=== PATIENT | female | born 1965 | race Caucasian/White ===

== ENCOUNTER 2016-10-26 15:26 | Observation (INO) ==
--- NOTE | 2016-10-26 15:31 | Emergency Department Note ---
Disposition Clinical Impression: Atrial fibrillation with RVR, Abnormal EKG, Dyspnea, Hypokalemia, Lactic acidosis, Hyperglycemia Disposition: Admitted As Inpatient General Adult HPI - General Chief complaint: ED Shortness of Breath/Dyspnea Stated complaint: afib w/RVR Time Seen by Provider: 10/26/16 15:28 - History of Present Illness HPI Narrative: 51-year-old female reports emergency department complaining of feeling weak and dizzy. 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 She was going to do an EKG today on the patient, and after running up some steps felt like she might pass out. The patient complained of shortness of breath, a pulse ox was placed and then noted she had a fast heart rate. The patient felt like passing out but did not pass out. EKG was obtained which reportedly showed A. fib with RVR. She had no trouble moving her arms or legs independently no weakness or numbness the arms or legs no slurred speech or seizure-like activity. The patient denies any chest pain. She has no history of coronary disease her last cardiac catheterization was [address] Bhagat. The patient denies any major medical problems. She was feeling fine prior to the event. The patient has had no abdominal pain vomiting diarrhea vaginal discharge fever rash flank pain acute back pain headache neck stiffness convulsion or confusion. No urinary symptoms. No trouble walking talking hearing seeing or speaking. The patient came in by EMS for evaluation. She feels improved.. She has no history of PE DVT cancer or akshat arrhythmia per reports she has a baseline abnormal EKG with ST depressions per her direct history. - Related Data Home Medications Medication Instructions Recorded Confirmed Diphenoxylate/Atropine [Lomotil 1 tab PO QID PRN 10/26/16 10/26/16 2.5 mg/0.025 mg] Medroxyprogesterone Acetate 150 mg IM Q3M 10/26/16 10/26/16 [Depo-Provera] Omeprazole [PriLOSEC] 20 mg PO DAILY PRN 10/26/16 10/26/16 Allergies Allergy/AdvReac Type Severity Reaction Status Date / Time No Known Allergies Allergy Verified 10/26/16 15:41 All systems ED: reviewed and negative except as stated. Physical Exam - General Limitations: no limitations General appearance: alert, in no apparent distress - Head Head exam: atraumatic, normocephalic, normal inspection - Eye Eye exam: Present: normal appearance, PERRL, EOMI - ENT ENT exam: normal exam, normal oropharynx, mucous membranes moist, TM's normal bilaterally, normal external ear exam - Neck Neck exam: Present: normal inspection, full ROM, trachea midline. Absent: tenderness, meningismus - Chest Chest inspection: Present: normal inspection, symmetric chest wall rise. Absent : tenderness - Respiratory Respiratory exam: Present: normal lung sounds bilaterally. Absent: respiratory distress, accessory muscle use, prolonged expiratory phase - Cardiovascular Cardiovascular exam: Present: regular rate, tachycardia - Abdominal Exam Abdominal exam: Present: soft, Non-Tender. Absent: tenderness, distention, guarding, rebound, rigidity, normal bowel sounds - Extremities Exam Extremities exam: Present: normal inspection, full ROM, normal capillary refill. Absent: tenderness, pedal edema, joint swelling, calf tenderness - Expanded Lower Extremity Exam Lower leg exam: Absent: Homans' sign Neurovascular/Tendon exam: Present: normal capillary refill. Absent: motor deficit, sensory deficit, tendon deficit, extremity cold to touch, pallor - Back Exam Back exam: Present: normal inspection, full ROM. Absent: tenderness, CVA tenderness (R), CVA tenderness (L), vertebral tenderness - Neurological Exam Neurological exam: Present: alert, oriented X3, CN II-XII intact. Absent: motor sensory deficit - Psychiatric Psychiatric exam: Present: normal affect, normal mood - Skin Skin exam: Present: warm, dry, intact, normal color. Absent: rash, cyanosis, diaphoresis, erythema, pallor, mottled Course Vital Signs Temperature 98.7 F 10/26/16 15:27 Pulse Rate 106 10/26/16 15:27 Respiratory Rate 24 10/26/16 15:27 Blood Pressure 157/100 10/26/16 15:27 O2 Sat by Pulse Oximetry 98 10/26/16 15:27 Temperature 98.7 F 10/26/16 15:27 Pulse Rate 97 10/26/16 16:55 Respiratory Rate 14 10/26/16 16:55 Blood Pressure 146/100 10/26/16 16:55 O2 Sat by Pulse Oximetry 97 10/26/16 16:55 Oxygen Delivery Oxygen Delivery Room Air Medical Decision Making - MDM Narrative Medical decision making narrative: I reviewed the EKG with Dr. Zysek cardiology, we both feel the patient does not have changes consistent with STEMI. The patient is not complaining of chest pain. She did have some dyspnea on exertion with noted arrhythmia, her second EKG the one done in the ED showed sinus tachycardia with ST depressions. Aspirin was ordered as a precaution. The Cardiology staff did report to the emergency department and evaluated the patient and recommend admission. The patient is currently stable. General testing reveals an elevated lactate, however no elevated white count or immediate source of infection is noted. IV fluids given. The patient is currently stable. A blood culture was ordered. I discussed the case with the hospitalist on-call who has accepted the patient to their care. Magnesium and CRP are pending. Aspirin and Lopressor ordered. - Lab Data Lab results reviewed: Yes I reviewed the patient's lab results. Result diagrams: 10/26/16 15:47 10/26/16 15:47 Lab Results 10/26/16 10/26/16 10/26/16 Range/Units 15:33 15:47 15:47 WBC 5.4 (4.3-11.1) K/mcL RBC 4.98 H (3.82-4.97) M/mcL Hgb 15.5 H (11.5-15.4) g/dL Hct 46.4 H (35.3-44.9) % MCV 93.2 (83.0-100.0) fL MCH 31.1 (28.0-33.3) pg MCHC 33.4 (31.6-35.5) g/dL RDW 12.6 (11.5-14.5) % Plt Count 257 (140-400) K/mcL MPV 9.2 L (9.4-12.4) fL Immature Gran % 0.2 (0-4) % Seg Neutrophils % 63.6 % Lymphocytes % 25.3 % Monocytes % 8.1 % Eosinophils % 2.2 % Basophils % 0.6 % Neutrophils # 3.5 (1.6-8.9) K/mcL Lymphocytes # 1.4 (0.6-4.6) K/mcL Monocytes # 0.4 (0.0-1.3) K/mcL Eosinophils # 0.1 (0.0-0.6) K/mcL Basophils # 0.0 (0.0-0.2) K/mcL PT 11.4 (9.4-12.1) Seconds INR 1.1 APTT 28.0 (26.0-36.0) Seconds D-Dimer 418 (0-500) ng/mLFEU Sodium (136-145) mEq/L Potassium (3.5-4.5) mEq/L Chloride (98-109) mEq/L Carbon Dioxide (19-29) mEq/L BUN (7-20) mg/dL Creatinine (0.57-1.11) mg/dL Est GFR ( Amer) (> 60) Est GFR (Non-Af Amer) (> 60) BUN/Creatinine Ratio (6-26) Glucose (70-99) mg/dL Calculated Osmolality (280-300) Lactic Acid (0.5-2.2) mmol/L Calcium (8.6-10.8) mg/dL Total Bilirubin (0.2-1.2) mg/dL Direct Bilirubin (0.0-0.5) mg/dL Indirect Bilirubin (0.0-1.2) mg/dL AST (5-34) Units/L ALT (0-55) Units/L Alkaline Phosphatase (38-126) Units/L Troponin I (0-0.03) ng/mL B-Natriuretic Peptide (0-100) pg/mL Serum Total Protein (6.0-8.3) g/dL Albumin (3.5-5.0) g/dL Globulin (2.4-3.5) g/dL Albumin/Globulin Ratio (1.1-2.2) TSH (0.350-4.840) mcIU/mL Free T4 (0.70-1.48) ng/dl Urine Color Yellow (Yellow) Urine Clarity Clear (Clear) Urine pH 6.0 (5.0-8.0) pH Units Ur Specific [place] 1.011 (1.010-1.025) Urine Protein Negative (Neg-Trace) mg/dL Urine Glucose (UA) Normal (Normal) mg/dL Urine Ketones Negative (Negative) mg/dL Urine Blood Moderate H (Negative) Urine Nitrite Negative (Negative) Urine Bilirubin Negative (Negative) Urine Urobilinogen Normal (Normal) mg/dL Ur Leukocyte Esterase Negative (Negative) Urine Microscopic RBC 3-5 H (0-3) per hpf Urine Microscopic WBC 0-3 (0-3) per hpf Ur Squamous Epith Cells Many H (None-Few) per lpf Urine Bacteria None Seen (None-Few) per hpf Hyaline Casts None Seen (None-Few) per lpf Ur Culture Indicated? NO (NO) 10/26/16 10/26/16 10/26/16 Range/Units 15:47 15:47 15:47 WBC (4.3-11.1) K/mcL RBC (3.82-4.97) M/mcL Hgb (11.5-15.4) g/dL Hct (35.3-44.9) % MCV (83.0-100.0) fL MCH (28.0-33.3) pg MCHC (31.6-35.5) g/dL RDW (11.5-14.5) % Plt Count (140-400) K/mcL MPV (9.4-12.4) fL Immature Gran % (0-4) % Seg Neutrophils % % Lymphocytes % % Monocytes % % Eosinophils % % Basophils % % Neutrophils # (1.6-8.9) K/mcL Lymphocytes # (0.6-4.6) K/mcL Monocytes # (0.0-1.3) K/mcL Eosinophils # (0.0-0.6) K/mcL Basophils # (0.0-0.2) K/mcL PT (9.4-12.1) Seconds INR APTT (26.0-36.0) Seconds D-Dimer (0-500) ng/mLFEU Sodium 143 (136-145) mEq/L Potassium 3.3 L (3.5-4.5) mEq/L Chloride 108 (98-109) mEq/L Carbon Dioxide 25 (19-29) mEq/L BUN 11 (7-20) mg/dL Creatinine 1.07 (0.57-1.11) mg/dL Est GFR ( Amer) > 60 (> 60) Est GFR (Non-Af Amer) 54 L (> 60) BUN/Creatinine Ratio 10 (6-26) Glucose 122 H (70-99) mg/dL Calculated Osmolality 297 (280-300) Lactic Acid 2.8 H (0.5-2.2) mmol/L Calcium 9.6 (8.6-10.8) mg/dL Total Bilirubin 0.7 (0.2-1.2) mg/dL Direct Bilirubin 0.3 (0.0-0.5) mg/dL Indirect Bilirubin 0.4 (0.0-1.2) mg/dL AST 19 (5-34) Units/L ALT 24 (0-55) Units/L Alkaline Phosphatase 92 (38-126) Units/L Troponin I 0.02 (0-0.03) ng/mL B-Natriuretic Peptide (0-100) pg/mL Serum Total Protein 7.7 (6.0-8.3) g/dL Albumin 3.8 (3.5-5.0) g/dL Globulin 3.9 H (2.4-3.5) g/dL Albumin/Globulin Ratio 1.0 L (1.1-2.2) TSH 0.993 (0.350-4.840) mcIU/mL Free T4 1.05 (0.70-1.48) ng/dl Urine Color (Yellow) Urine Clarity (Clear) Urine pH (5.0-8.0) pH Units Ur Specific [place] (1.010-1.025) Urine Protein (Neg-Trace) mg/dL Urine Glucose (UA) (Normal) mg/dL Urine Ketones (Negative) mg/dL Urine Blood (Negative) Urine Nitrite (Negative) Urine Bilirubin (Negative) Urine Urobilinogen (Normal) mg/dL Ur Leukocyte Esterase (Negative) Urine Microscopic RBC (0-3) per hpf Urine Microscopic WBC (0-3) per hpf Ur Squamous Epith Cells (None-Few) per lpf Urine Bacteria (None-Few) per hpf Hyaline Casts (None-Few) per lpf Ur Culture Indicated? (NO) 10/26/16 Range/Units 15:47 WBC (4.3-11.1) K/mcL RBC (3.82-4.97) M/mcL Hgb (11.5-15.4) g/dL Hct (35.3-44.9) % MCV (83.0-100.0) fL MCH (28.0-33.3) pg MCHC (31.6-35.5) g/dL RDW (11.5-14.5) % Plt Count (140-400) K/mcL MPV (9.4-12.4) fL Immature Gran % (0-4) % Seg Neutrophils % % Lymphocytes % % Monocytes % % Eosinophils % % Basophils % % Neutrophils # (1.6-8.9) K/mcL Lymphocytes # (0.6-4.6) K/mcL Monocytes # (0.0-1.3) K/mcL Eosinophils # (0.0-0.6) K/mcL Basophils # (0.0-0.2) K/mcL PT (9.4-12.1) Seconds INR APTT (26.0-36.0) Seconds D-Dimer (0-500) ng/mLFEU Sodium (136-145) mEq/L Potassium (3.5-4.5) mEq/L Chloride (98-109) mEq/L Carbon Dioxide (19-29) mEq/L BUN (7-20) mg/dL Creatinine (0.57-1.11) mg/dL Est GFR ( Amer) (> 60) Est GFR (Non-Af Amer) (> 60) BUN/Creatinine Ratio (6-26) Glucose (70-99) mg/dL Calculated Osmolality (280-300) Lactic Acid (0.5-2.2) mmol/L Calcium (8.6-10.8) mg/dL Total Bilirubin (0.2-1.2) mg/dL Direct Bilirubin (0.0-0.5) mg/dL Indirect Bilirubin (0.0-1.2) mg/dL AST (5-34) Units/L ALT (0-55) Units/L Alkaline Phosphatase (38-126) Units/L Troponin I (0-0.03) ng/mL B-Natriuretic Peptide 29 (0-100) pg/mL Serum Total Protein (6.0-8.3) g/dL Albumin (3.5-5.0) g/dL Globulin (2.4-3.5) g/dL Albumin/Globulin Ratio (1.1-2.2) TSH (0.350-4.840) mcIU/mL Free T4 (0.70-1.48) ng/dl Urine Color (Yellow) Urine Clarity (Clear) Urine pH (5.0-8.0) pH Units Ur Specific [place] (1.010-1.025) Urine Protein (Neg-Trace) mg/dL Urine Glucose (UA) (Normal) mg/dL Urine Ketones (Negative) mg/dL Urine Blood (Negative) Urine Nitrite (Negative) Urine Bilirubin (Negative) Urine Urobilinogen (Normal) mg/dL Ur Leukocyte Esterase (Negative) Urine Microscopic RBC (0-3) per hpf Urine Microscopic WBC (0-3) per hpf Ur Squamous Epith Cells (None-Few) per lpf Urine Bacteria (None-Few) per hpf Hyaline Casts (None-Few) per lpf Ur Culture Indicated? (NO) - Radiology Data Radiology results reviewed: Yes I reviewed the patient's radiology results.
[2016-10-26 15:41] LABS: Bilirubin,Urine Negative (Negative); Blood,Urine Moderate (Negative); Clarity,Urine Clear (Clear); Color,Urine Yellow (Yellow); Glucose,Urine (UA) Normal (Normal); Ketones,Urine Negative (Negative); Leukocyte Esterase,Urine Negative (Negative); Nitrite,Urine Negative (Negative); Protein,Urine Negative (Neg-Trace); Specific Gravity,Urine 1.011 (1.010-1.025); Urobilinogen,Urine Normal (Normal)
[2016-10-26 15:43] LABS: Bacteria,Urine None Seen per hpf (None-Few); Hyaline Casts,Urine None Seen per lpf (None-Few); Squamous Epithelial Cell,Urine Many per lpf (None-Few); WBC,Urine 0-3 per hpf (0-3)
[2016-10-26 15:58] LABS: Basophils % 0.6 %; Eosinophils # 0.1 K/mcL (0.0-0.6); Eosinophils % 2.2 %; Hematocrit 46.4 % (35.3-44.9); Hemoglobin 15.5 g/dL (11.5-15.4); Immature Granulocytes % 0.2 % (0-4); Lymphocytes # 1.4 K/mcL (0.6-4.6); Lymphocytes % 25.3 %; Mean Corpuscular HGB Conc 33.4 g/dL (31.6-35.5); Mean Corpuscular Hemoglobin 31.1 pg (28.0-33.3); Mean Corpuscular Volume 93.2 fL (83.0-100.0); Mean Platelet Volume 9.2 fL (9.4-12.4); Monocytes # 0.4 K/mcL (0.0-1.3); Monocytes % 8.1 %; Neutrophils # 3.5 K/mcL (1.6-8.9); Platelet Count 257 K/mcL (140-400); Red Blood Count 4.98 M/mcL (3.82-4.97); Red Cell Distribution Width 12.6 % (11.5-14.5); Segmented Neutrophils % 63.6 %
[2016-10-26 16:02] LABS: INR 1.1; Prothrombin Time 11.4 Seconds (9.4-12.1)
[2016-10-26 16:13] LABS: Alanine Aminotransferase 24 Units/L (0-55); Albumin 3.8 g/dL (3.5-5.0); Alkaline Phosphatase 92 Units/L (38-126); Aspartate Amino Transferase 19 Units/L (5-34); BUN/Creatinine Ratio 10 (6-26); Bilirubin,Direct 0.3 mg/dL (0.0-0.5); Bilirubin,Indirect 0.4 mg/dL (0.0-1.2); Bilirubin,Total 0.7 mg/dL (0.2-1.2); Blood Urea Nitrogen 11 mg/dL (7-20); Calcium 9.6 mg/dL (8.6-10.8); Carbon Dioxide 25 mEq/L (19-29); Chloride 108 mEq/L (98-109); Globulin 3.9 g/dL (2.4-3.5); Glucose 122 mg/dL (70-99); Osmolality,Calculated 297 (280-300); Potassium 3.3 mEq/L (3.5-4.5); Sodium 143 mEq/L (136-145); Total Protein 7.7 g/dL (6.0-8.3); eGFR For African Americans > 60 (> 60); eGFR For Non-African Americans 54 (> 60)
[2016-10-26] MEDS ORDERED: Metoprolol 100 MG TABLET PO SCH (16:24)
[2016-10-26] MEDS ORDERED: Aspirin 325 MG TABLET PO ONE (16:26)
--- NOTE | 2016-10-26 16:26 | Cardiology Consult Note ---
<Yeyo Handley - Last Filed: 10/26/16 16:23> Date of Encounter: 10/26/16 Time of Encounter: 16:15 Assessment and Plan (1) Atrial fibrillation with RVR Current Visit: Yes Status: Acute Per cardiology: New-onset A. fib with RVR. D-dimer negative. Troponin and BMP within normal limits. Magnesium and TSH pending. Has converted to sinus tachycardia in the 100s. Of note patient noted to have sinus tachycardia in the 100s on previous stress test and left heart catheterization in 2012. Denies sleep apnea. May consider outpatient sleep study. Systolic blood pressure noted to be in the 160s. Recommend beta lori. We'll check echocardiogram. Regarding long-term anticoagulation, has a [id number] = 1 (female). We'll start aspirin for now. Further examinations pending hospital course. Discussed and reviewed with Dr. Arboleda. (3) CAD (coronary artery disease) Current Visit: Yes Status: Chronic Per Cardiology: History of nonobstructive CAD. Reported history of abnormal baseline ECG with subsequent abnormal stress test in 2011. Catheterization from 2012 showed mid left main 10%, proximal LAD 20%, proximal circumflex complex 20%, and proximal RCA 20% stenosis. Again adding aspirin and beta lori. We'll consider addition of statin therapy-- will check fasting lipids (last checked 2014). Qualifiers: Coronary Disease-Associated Artery/Lesion type: [place] artery [place] vs. transplanted heart: [place] heart Associated angina: without angina Qualified Code(s): I25.10 - Atherosclerotic heart disease of [place] coronary artery without angina pectoris Discussion w patient/family: The assessment and plan as outlined above was discussed with the patient and/or family members who expressed understanding and agreement. All questions were answered. Thank you for involving us in the care of your patient. Please call with any questions. History of Present Illness Consult date: 10/26/16 Consult reason: Afib RVR Chief complaint: Palpitations History of present illness: Ms. Paulino is a 51 year old female with a relevant past medical history of nonobstructive CAD with abnormal stress test, diet managed hyperlipidemia, and obesity. 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 She reports she ran up a flight of stairs and developed palpitations with dizziness, diaphoresis, and shortness of breath. She reports ECG obtain an showed A. fib with RVR. Prior to this event denies any known history of A. fib. She denies any hypothyroidism or sleep apnea. Reports no change in her usual state of health over the previous few weeks. Denies any new medications. Denies any supplements, recreational drug use , alcohol use, or smoking. She denies any active bleeding or blood loss. Denies any history of TIA or stroke. Past Med Surg Social Fam HX - Past Medical History Attestation: Yes The following information was validated with the patient. Source: patient, old records reviewed, obtained from family Medical history: coronary artery disease, other Psychiatric history: no psych history - Social History Smoking Status: Never smoker Smokeless Tobacco Status: No Alcohol use: none Drug use: none Medications and Allergies Medroxyprogesterone Acetate [Depo-Provera] 150 mg IM Q3M 10/26/16 [History] Omeprazole [PriLOSEC] 20 mg PO DAILY PRN 10/26/16 [History] RX: Diphenoxylate/Atropine [Lomotil 2.5 mg/0.025 mg] 1 tab PO QID PRN 10/26/16 [ History] Allergies No Known Allergies Allergy (Verified 10/26/16 15:41) All Systems Review: A 10-system review of systems was performed and is negative for pertinent findings except as documented above in the HPI. - Cardiovascular Cardiovascular: as per HPI, dyspnea on exertion, lightheadedness, palpitations Physical Examination Vital Signs, Last 4 Hours Temp Pulse Resp BP Pulse Ox 10/26/16 15:42 102 18 160/104 98 10/26/16 15:27 98.7 F 106 24 157/100 98 General: Conversant, No Apparent Distress HEENT: Atraumatic, Normocephaly, Mucus Membranes Moist Neck: No JVD, Normal carotid pulses Cardiac: Reg Rate and Rhythm, Normal S1 and S2, No Murmur Lungs: Normal Breath Sounds, No Wheeze, Rales, Rhonchi Neuro: Alert and responsive, No focal deficits noted, Other (Anxious) Abdomen: Soft, Non-Tender Skin: No rashes noted on visualized skin Musculoskeletal: No Chest Wall Tenderness Extremities: No Edema, Normal Pulses Results 10/26/16 15:47 10/26/16 15:47 Lab Results Laboratory Tests 10/26/16 10/26/1610/26/17 15:47 15:47 15:47 INR 1.1 D-Dimer 418 Potassium 3.3 L AST 19 ALT 24 Troponin I 0.02 B-Natriuretic Peptide 10/26/16 15:47 INR D-Dimer Potassium AST ALT Troponin I B-Natriuretic Peptide 29 Active Medications Aspirin (Aspirin Ec) 81 mg PO DAILY [facility] Stop: 04/27/17 16:31 Metoprolol Tartrate (Lopressor) 25 mg PO BID [facility] Stop: 04/27/17 16:25 - Imaging and Cardiology Stress Test: report reviewed Echo: pending Cardiac cath: report reviewed - EKG Interpretation EKG results cardiology: personally reviewed (A. jessica with RVR), other (currently sinus tachycardia on telemetry and 100s) Consult Discharge Plan - Plan Referrals: Blu Musa DO [Primary Care Provider] - <Nata Arboleda - Last Filed: 10/27/16 11:29> Date of Encounter: 10/27/16 Assessment and Plan Discussion w patient/family: The assessment and plan as outlined above was discussed with the patient and/or family members who expressed understanding and agreement. All questions were answered. Thank you for involving us in the care of your patient. Please call with any questions. History of Present Illness History of present illness: Ms. Paulino is a 51 year old female All Systems Review: A 10-system review of systems was performed and is negative for pertinent findings except as documented above in the HPI. Results 10/27/16 02:15 10/27/16 02:15 Lab Results 10/26/16 10/26/16 10/27/16 19:01 19:01 02:15 WBC Hgb Hct Plt Count Sodium Potassium Chloride Carbon Dioxide BUN Creatinine Glucose Calcium Magnesium 2.2 Total Bilirubin AST ALT Alkaline Phosphatase Troponin I 0.06 H* 0.04 H* 10/27/16 10/27/16 02:15 02:15 WBC 5.8 Hgb 13.6 D Hct 40.4 Plt Count 245 Sodium 142 Potassium 3.6 Chloride 110 H Carbon Dioxide 25 BUN 12 Creatinine 0.85 Glucose 95 Calcium 9.0 Magnesium Total Bilirubin 0.8 AST 15 ALT 20 Alkaline Phosphatase 67 Troponin I - Attending Attestation I examined this patient and my medical decision-making was reviewed with the [employer] HELPER/PA/Advanced Practice Nurse/Resident Physician. I agree with the documented findings, disposition and treatment plan. Ms. Paulino presents with newly discovered AFIB RVR. Labs demonstrated mild hypokalemia. Magnesium, TSH and renal function normal. D-dimer was also normal. She denies recent illness of feeling unwell. She denies chest pain. She is not aware of any family members having AFIB at an early age. She had a LHC in 2011 demonstrating mild nonobstructive CAD. Recommend echo, trend troponins and electrolyte repletion.
[2016-10-26] MEDS ORDERED: Aspirin Enteric Coated 81 MG Tablet PO SCH (16:30)
[2016-10-26 16:37] LABS: Thyroid Stimulating Hormone 0.993 mcIU/mL (0.350-4.840)
[2016-10-26] MEDS ORDERED: Naloxone 0.4 MG/ML INJ IVP PRN (17:51)
[2016-10-26] MEDS ORDERED: Diphenoxylate/Atropine 1 TAB TABLET PO PRN (17:59)
[2016-10-26] MEDS ORDERED: MEDROXYPROGESTERONE ACETATE 150 MG IM SCH (18:00)
[2016-10-26 18:01] LABS: C-Reactive Protein 1 mg/L (Less than 5); Magnesium 2.1 mg/dL (1.6-2.6)
--- NOTE | 2016-10-26 18:44 | Event Note ---
Date of Encounter: 10/26/16 Time of Encounter: 18:40 Patient seen and examiined. New onset Afib. Spontaneously cardioverted to sinus. Now sinus tachycardia. Started on metoprolol. EKG shows beats of wide complex tachycardia either AFib with aberration vs. Vtach. I have sent EKG to cardiology service. No prior history of arrythmia or family history of SCD. K 3.3 and 40 meq of K given. We will also check Mg and replace up to 2. Check echocardiogram. She had a cath 5 years ago and showed minimal disease. CHADVascis 1.
--- NOTE | 2016-10-26 19:58 | Internal Med History&Physical ---
Date of Encounter: 10/26/16 Time of Encounter: 17:10 Assessment and Plan (1) Atrial fibrillation with RVR Current visit: Yes Status: Acute Assess: Patient presents to the ED with new onset of atrial fibrillation with RVR. Patient denies history of previous Afib. Patient states that she has history of ST depression which she was told is her normal. Patient states last stress test was 4-5 years ago. Patient was running up steps at work today and states she felt like she was going to pass out, but denies syncope. She denies chest pain or other cardiac-related symptoms. Plan: Lopressor ordered and administered in ED Blood cultures ordered in ED U/A ordered in ED EV Echocardiogram ordered Repeat EKG Low-dose aspirin therapy ordered Heparin 5,000 units SQ Q8HR ordered Continuous cardiac monitoring ordered Trend troponins x3 Monitor patient's vital signs (2) Abnormal EKG Current visit: Yes Status: Acute Assess: Patient presents to the ED with new onset of atrial fibrillation with RVR and abnormal EKG. Patient denies history of previous Afib. Patient states that she has history of ST depression which she was told is her normal. Patient states last stress test was 4-5 years ago. Patient was running up steps at work today and states she felt like she was going to pass out, but denies syncope. She denies chest pain or other cardiac-related symptoms. Plan: Lopressor ordered and administered in ED Blood cultures ordered in ED U/A ordered in ED EV Echocardiogram ordered Repeat EKG Low-dose aspirin therapy ordered Heparin 5,000 units SQ Q8HR ordered Continuous cardiac monitoring ordered Trend troponins x3 Monitor patient's vital signs (3) CAD (coronary artery disease) Current visit: Yes Status: Chronic Assess: Patient presents to the ED with new onset of atrial fibrillation with RVR and history of CAD. Patient reports having heart catheterization several years ago with no stent placements. Patient denies history of previous Afib. Patient states that she has history of ST depression which she was told is her normal. Patient states last stress test was 4-5 years ago. Patient was running up steps at work today and states she felt like she was going to pass out, but denies syncope. She denies chest pain or other cardiac-related symptoms. Plan: Lopressor ordered and administered in ED Blood cultures ordered in ED U/A ordered in ED EV Echocardiogram ordered Repeat EKG Lipid panel ordered Low-dose aspirin therapy ordered Heparin 5,000 units SQ Q8HR ordered Continuous cardiac monitoring ordered Trend troponins x3 Monitor patient's vital signs Qualifiers: Coronary Disease-Associated Artery/Lesion type: [place] artery [place] vs. transplanted heart: [place] heart Associated angina: without angina Qualified Code(s): I25.10 - Atherosclerotic heart disease of [place] coronary artery without angina pectoris (4) DVT prophylaxis Current visit: Yes Status: Acute Assess: Patient placed on DVT prophylaxis based on her new onset of atrial fibrillation with RVR and inpatient status. Plan: Heparin 5,000 units SQ Q8HR ordered Monitor patient's vital signs Internal Medicine - H&P: HPI Chief complaint: Afib with RVR Admitted From: Emergency Dept Plans for Post Hospital Care: Home History of present illness: Ms. Paulino is a 51 year old female who presents from the ED with new onset of atrial fibrillation with RVR. Patient denies history of previous Afib. Patient states that she has history of ST depression which she was told is her normal. Patient states last stress test was 4-5 years ago. Mrs. Paulino was running up steps at work today and states she felt like she was going to pass out, but denies syncope. She denies chest pain or other cardiac-related symptoms. She reports that she had a heart catheterization several years ago with no stent placements being done. Patient to be placed as observation status with continuous cardiac monitoring, troponin trending x3, ordered EV echocariogram, repeat EKGs, low-dose aspirin therapy, and DVT prophylaxis of 5,000 units of Heparin SQ Q8HR ordered. Patient and her vitals to be monitored closely. Past Med Surg Social Fam HX - Past Medical History Source: patient Medical history: coronary artery disease, other Psychiatric history: no psych history - Past Surgical History Surgical History: appendectomy - Social History Smoking Status: Never smoker Smokeless Tobacco Status: No Alcohol use: none Drug use: none Occupational status: employed Current living situation: Home Activity Level: Independent ambulation Recent Out of Country Travel Within the Last 8 Weeks: No Exposure or Possible Exposure to Illness During Travel: No - Family History Father Race: Family Member Ethnicity: Non- Living Status: Age at : 68 Hx Family GI Disorders: (jennifer) Hx Family Endocrine Disorder: Yes (Infected gallbladder) Mother Race: Family Member Ethnicity: Non- Living Status: Still Living Hx Family Cardiac Disorders: Yes (HTN, hyperlipidemia) Brother Race: Family Member Ethnicity: Non- Living Status: Still Living Hx Family GI Disorders: Yes (Unspecified) Sister Race: Family Member Ethnicity: Non- Living Status: Still Living Hx Family Medical Disorders: No (Healthy) Internal Medicine - H&P: Meds Diphenoxylate/Atropine [Lomotil 2.5 mg/0.025 mg] 1 tab PO QID PRN 10/26/16 [ History] Medroxyprogesterone Acetate [Depo-Provera] 150 mg IM Q3M 10/26/16 [History] Omeprazole [PriLOSEC] 20 mg PO DAILY PRN 10/26/16 [History] Allergies No Known Allergies Allergy (Verified 10/26/16 15:41) All Systems PM: A 10-system review of systems was performed and is negative for pertinent findings except as documented above in the HPI. - Constitutional Constitutional: no chills, no fever(s), no night sweats - EENT Eyes: no change in vision, no discharge, no pain, no photophobia Ears: no ear discharge, no ear pain, no tinnitus Nose, mouth and throat: no dysphagia, no nasal discharge, no neck pain, no sore throat - Breasts Breasts: as per HPI - Cardiovascular Cardiovascular ROS IM: as per HPI, irregular heart rhythm, lightheadedness, palpitations, no chest pain, no diaphoresis, no dyspnea, no syncope - Respiratory Respiratory: no cough, no dyspnea, no wheezing, no excessive phlegm production - Gastrointestinal Gastrointestinal: no abdominal pain, no diarrhea, no hematemesis, no hematochezia, no melena, no nausea, no vomiting - Genitourinary Genitourinary: no change in urinary stream, no dysuria, no flank pain, no hematuria Menstruation: as per HPI - Musculoskeletal Musculoskeletal ROS IM: no numbness, no tingling - Integumentary Integumentary IM: no rash, no unusual bruising - Neurological Neurological ROS: no confusion, no convulsions, no focal weakness, no numbness, no tingling, no tremor(s) - Psychiatric Psychiatric: as per HPI - Endocrine Endocrine IM: as per HPI - Hematologic/Lymphatic Hematologic/Lymphatic: no easy bruising - Allergic/Immunologic Allergic/Immunologic: as per HPI - Constitutional Vitals: Temp Pulse Resp BP Pulse Ox 98.0 F 65 24 122/97 97 10/26/16 18:05 10/26/16 18:05 10/26/16 18:05 10/26/16 18:05 10/26/16 18:33 General appearance: Present: cooperative, A&O X 3, pleasant, no acute distress, obese, answers questions appropriately - Head Head exam: Present: atraumatic, normocephalic - Eye Eye exam: Present: PERRL, conjuntiva pink, sclera anicteric Pupils: Present: PERRL - ENT ENT exam: Present: normal exam, normal external ear exam - Neck Neck exam general surgery: Present: supple, trachea midline. Absent: lymphadenopathy - Respiratory Respiratory exam: Present: CTAB. Absent: accessory muscle use, rales, rhonchi, wheezes - Cardiovascular Cardiovascular exam: Present: RRR, +S1, +S2. Absent: diastolic murmur, gallop, rubs, systolic murmur Additional comments: Upon exam, patient's HR is normal and regular rhythm. - GI/Abdominal GI/Abdominal exam: Present: normal bowel sounds, soft, no peritoneal signs. Absent: distended, tenderness - Rectal Rectal exam: Present: deferred - Additional comments: exam deferred. - Extremities Exam Extremities exam: Present: warm, radial pulses palpable and symetrical. Absent : calf tenderness, cyanotic, pedal edema - Back Exam Back exam: Present: normal inspection - Neurological Exam Neurological exam: Present: CN II-XII intact, oriented X3, no focal deficits. Absent: pronater drift, facial droop, speech deficit - Psychiatric Psychiatric exam: Present: normal affect, normal mood - Skin Skin exam: Present: dry, intact Internal Med - H&P Results - Labs CBC & Chem 7: 10/26/16 15:47 10/26/16 15:47 Labs: Cardiac Enzymes 10/26/16 Range/Units 19:01 Troponin I 0.06 H* (0-0.03) ng/mL - EKG Data Prior EKG available for review: yes When compared to previous EKG: there are significant changes EKG comments: 10/26/16 20:06 EKG dated 10/26/16 at 14:31:10 shows atrial fibrillation with RVR, intraventricular conduction delay, right ventricular hypertrophy, and ST elevation. Consider anterior injury. EKG dated 10/26/16 at 15:33:25 shows sinus tachycardia with possible right ventricular conduction delay and non-specific St & T-wave abnormality. - Diagnostic Studies Chest x-ray Additional comments: 2-View CXR dated 10/26/16 shows no acute pulmonary process.
[2016-10-26] MEDS ORDERED: *HR* LORazepam 0.5 MG TABLET PO ONE (20:31)
[2016-10-26] MEDS: *HR* Heparin 5,000 UNIT/ML VIAL SQ SCH ×2 (20:58→21:01)
[2016-10-27 02:37] LABS: Basophils % 0.5 %; Eosinophils # 0.1 K/mcL (0.0-0.6); Eosinophils % 2.1 %; Hematocrit 40.4 % (35.3-44.9); Immature Granulocytes % 0.3 % (0-4); Lymphocytes # 2.1 K/mcL (0.6-4.6); Lymphocytes % 36.6 %; Mean Corpuscular HGB Conc 33.7 g/dL (31.6-35.5); Mean Corpuscular Hemoglobin 31.6 pg (28.0-33.3); Mean Corpuscular Volume 93.7 fL (83.0-100.0); Mean Platelet Volume 9.7 fL (9.4-12.4); Monocytes # 0.5 K/mcL (0.0-1.3); Monocytes % 8.7 %; Platelet Count 245 K/mcL (140-400); Red Blood Count 4.31 M/mcL (3.82-4.97); Red Cell Distribution Width 12.6 % (11.5-14.5); Segmented Neutrophils % 51.8 %
[2016-10-27 02:55] LABS: Alanine Aminotransferase 20 Units/L (0-55); Albumin 3.3 g/dL (3.5-5.0); Albumin/Globulin Ratio 1.1 (1.1-2.2); Alkaline Phosphatase 67 Units/L (38-126); Aspartate Amino Transferase 15 Units/L (5-34); BUN/Creatinine Ratio 14 (6-26); Bilirubin,Total 0.8 mg/dL (0.2-1.2); Blood Urea Nitrogen 12 mg/dL (7-20); Carbon Dioxide 25 mEq/L (19-29); Chloride 110 mEq/L (98-109); Chol/HDL Ratio 5.5 (0-4.9); Cholesterol 180 mg/dL (< 200); Globulin 3.1 g/dL (2.4-3.5); Glucose 95 mg/dL (70-99); HDL Cholesterol 33 mg/dL (40-59); LDL Cholesterol,Calculated 124 mg/dL (0-99); Osmolality,Calculated 294 (280-300); Potassium 3.6 mEq/L (3.5-4.5); Sodium 142 mEq/L (136-145); Total Protein 6.4 g/dL (6.0-8.3); Triglycerides 117 mg/dL (< 150); eGFR For African Americans > 60 (> 60); eGFR For Non-African Americans > 60 (> 60)
[2016-10-27 02:58] LABS: Hemoglobin 13.6 g/dL (11.5-15.4)
[2016-10-27] MEDS: *HR* Heparin 5,000 UNIT/ML VIAL SQ SCH ×3 (05:32→21:24)
--- NOTE | 2016-10-27 08:59 | Cardiology Progress Note ---
Date of Encounter: 10/27/16 Time of Encounter: 09:00 Assessment and Plan (1) Atrial fibrillation with RVR Current Visit: Yes Status: Acute Per cardiology: New-onset A. fib with RVR. D-dimer negative. BMP, Mg, and TSH ok. Of note patient noted to have sinus tachycardia in the 100s on previous stress test and left heart catheterization in 2012. On BB. Currently SR with avg HR 69. SBP now in the 130's. Denies sleep apnea. May consider outpatient sleep study. Echo showed EF 6065%, mild diastolic dysfunction, no significant valvular dysfunction , no segmental wall motion abnormalities. Regarding long-term anticoagulation, has a [id number] = 1 (female). On asa. Further recs pending hospital course. (2) Elevated troponin I measurement Current Visit: Yes Status: Acute Per Cardiology: Initial trop negative, now 0.06 and 0.04. Suspect demand ischemia in setting of HTN and afib with RVR. No CP. No cardiac rehab warranted at this time. Discussed and reviewed with Dr. Arboleda, we'll proceed with stress echocardiogram. (3) CAD (coronary artery disease) Current Visit: Yes Status: Chronic Per Cardiology: History of nonobstructive CAD. Reported history of abnormal baseline ECG with subsequent abnormal stress test in 2012. Catheterization from 2012 showed mid left main 10%, proximal LAD 20%, proximal circumflex complex 20%, and proximal RCA 20% stenosis. Now on asa and BB. LDL 124, will add statin. Qualifiers: Coronary Disease-Associated Artery/Lesion type: [place] artery [place] vs. transplanted heart: [place] heart Associated angina: without angina Qualified Code(s): I25.10 - Atherosclerotic heart disease of [place] coronary artery without angina pectoris Discussion w patient/family: The assessment and plan as outlined above was discussed with the patient who expressed understanding and agreement. All questions were answered. Thank you for involving us in the care of your patient. Please call with any questions. Subjective Principal diagnosis: Afib RVR Interval history: Denies any CP, SOB, Palps. Denies any complaints other than wanting to go home. Objective Vital Signs, Last 4 Hours Temp Pulse Resp BP Pulse Ox 10/27/16 06:54 97.9 F 72 16 130/75 97 General: Conversant, No Apparent Distress HEENT: Atraumatic, Normocephaly, Mucus Membranes Moist Cardiac: Reg Rate and Rhythm, Normal S1 and S2, No Murmur Lungs: Normal Breath Sounds, No Wheeze, Rales, Rhonchi Neuro: Alert and responsive, No focal deficits noted Skin: No rashes noted on visualized skin Extremities: No Edema Results 10/27/16 02:15 10/27/16 02:15 Lab Results Laboratory Tests 10/26/16 10/26/16 10/26/16 15:47 15:47 15:47 INR 1.1 Troponin I 0.02 Cholesterol LDL Cholesterol, Calc HDL Cholesterol TSH 0.993 Free T4 1.05 10/26/16 10/27/16 10/27/16 19:01 02:15 02:15 INR Troponin I 0.06 H* 0.04 H* Cholesterol 180 LDL Cholesterol, Calc 124 H HDL Cholesterol 33 L TSH Free T4 ITS Impressions Chest X-Ray 10/26/16 15:29 IMPRESSION: No acute cardiopulmonary process. D/ / 10/26/2016 17:07:28 Julio César Rojo MD / [email or web address] Interpreting Provider: Julio César Rojo MD Active Medications Aspirin (Aspirin Ec) 81 mg PO DAILY [facility] Stop: 04/28/17 09:01 Last Admin: 10/27/16 08:40 Dose: 81 mg Heparin Sodium (Porcine) (Heparin) 5,000 unit SQ Q8HCO [facility] Stop: 04/27/17 22:01 Last Admin: 10/27/16 05:32 Dose: Not Given Metoprolol Tartrate (Lopressor) 25 mg PO BID [facility] Stop: 04/28/17 09:01 Last Admin: 10/27/16 08:40 Dose: 25 mg Naloxone HCl (Narcan) 0.4 mg IVP Q2MIN PRN PRN Reason: Opioid Reversal Stop: 04/27/17 17:52 Omeprazole (Prilosec) 20 mg PO DAILY PRN; Protocol PRN Reason: Heartburn Stop: 04/27/17 18:00 - Imaging and Cardiology Chest Xray: report reviewed Echo: report reviewed - EKG Interpretation EKG results cardiology: other (24 hr tele reviewed with avg HR 69, SR) Consult Discharge Plan - Plan Referrals: Blu Musa DO [Primary Care Provider] -
[2016-10-27] MEDS ORDERED: Aspirin Enteric Coated 81 MG Tablet PO SCH (09:00)
--- NOTE | 2016-10-27 10:06 | ECHO - Doppler Report ---
Echocardiogram Name: Ashley Paulino Date of Study: 10/26/2016 Date: 1965 Ht: 69.0 in Medical Record#: [id number] Age: 51 Wt: 210.0 lb Gender: Female BSA: 2.11 Order #: [id number] Location: [facility] Room #: 2NE28 Reading Physician: Graham Bhagat DO, SAMMY DIXON Baker Bench: Rosmery Ann Ordering Physician: Kalie Parsons CNP Primary Physician: Blu Musa DO Indications: New onset Afib w/RVR Impressions: LVEF 60-65%. Normal LV chamber size, wall thickness and function. Mild left ventricular diastolic dysfunction. Normal right ventricular structure and function. No evidence of pulmonary hypertension. No significant valvular dysfunction. Left Ventricular Wall Motion: Rest Echo Findings All wall segments showed normal motion. Findings: Study Quality * Technically adequate exam. ECG Findings * Normal sinus rhythm. Left Ventricle * LVEF 60-65%. * Normal LV chamber size, wall thickness and function. * Mild left ventricular diastolic dysfunction. Right Ventricle * Normal right ventricular structure and function. Left Atrium * Mildly dilated left atrium. Right Atrium * Normal right atrial size. Interatrial Septum * Interatrial septum not well evaluated. No obvious shunt with color Doppler. Aortic Valve * Trileaflet aortic valve with normal function. * No aortic regurgitation. * No aortic stenosis. Mitral Valve * Normal mitral valve structure and function. * No mitral stenosis. * Trace mitral regurgitation. Tricuspid Valve * Normal tricuspid valve structure and function. * Trace tricuspid regurgitation. * No evidence of pulmonary hypertension. Pulmonic Valve * Pulmonic valve not well visualized. * No pulmonic regurgitation. Aorta * Normally sized aortic root. Pericardium * The pericardium appears normal. IVC * Normal IVC dimensions and inspiratory collapse. Pulmonary Artery * Normal visualized portions of the main pulmonary artery. History History of CAD/PTCA Measurements: BP: 122/ 97 2D Normal Values RVIDd: 2.90 cm <2.7 cm IVSd: 1.00 cm 0.6 - 1.0 cm LVIDd: 4.40 cm 3.7 - 5.6 cm LVPWd: 1.00 cm 0.6 - 1.1 cm LVIDs: 3.10 cm 1.5 - 3.6 cm AO: 2.90 cm < 4.0 cm LA: 3.90 cm 2.0 - 4.0cm %FS: 29.50 cm >25 % LA volume: 55 Mitral Valve Peak E:1.27 m/sec Peak A:1.18 m/sec E/A Ratio:1.1 Peak E' Lat Rickey:6.73 cm/s Peak E' Med Rickey:5.26 cm/s E/E' Lat Ratio:18.9 E/E' Med Ratio:24.1 Tricuspid Valve TV Regurg Peak Grad: 20.00mmHg TV Regurg Peak Rickey: 2.25m/sec Updated by Graham Bhagat DO, DESTINY, SAMMY, DEANNA on 10/27/2016 10:00:03 AM electronically signed on 10/27/2016 10:00:43 AM with status of Final Wall Motion Harper: 1=Normal, 2=Hypokinesis, 3=Akinesis, 4=Dyskinesis, 5=Aneurysmal, 6=Hyperkinetic, X=Not Visualized (Blank)=Missing
--- NOTE | 2016-10-27 10:42 | Internal Med Progress Note ---
<Bruno Bhandari - Last Filed: 10/27/16 14:29> Date of Encounter: 10/27/16 Time of Encounter: 09:40 - Assessment and plan (1) Atrial fibrillation with RVR Current Visit: Yes Status: Acute Assessment and plan: Paroxysmal, since resolved. TSH wnl, electrolyte derangements corrected. Etiology unclear, but given her habitus and admission of snoring, suspect possible transient hypoxemia from untreated DEDRA. Prior ischemic w/u [facility] 2011 minimal non-obstructive CAD. 10/26/16 Echo EF 60%, no evidence PHT/VHD, mildly dilated LA Appreciate cardiology recs. She is agreeable to undergoing stress echo in AM. Hold BB. (2) CAD (coronary artery disease) Current Visit: Yes Status: Chronic Assessment and plan: Minimal non-obstructive CAD per [facility] 2011 Added ASA, Statin. BB on hold due to anticipated stress echo in AM. Qualifiers: Coronary Disease-Associated Artery/Lesion type: [place] artery [place] vs. transplanted heart: [place] heart Associated angina: without angina Qualified Code(s): I25.10 - Atherosclerotic heart disease of [place] coronary artery without angina pectoris (3) DEDRA (obstructive sleep apnea) Current Visit: Yes Status: Acute Assessment and plan: Per above, suspect underlying untreated DEDRA. Plan for home health nocturnal pulse-ox study as outpatient. (4) Obesity (BMI 30.0-34.9) Current Visit: Yes Status: Acute Assessment and plan: Counseled on healthy diet and lifestyle modifications. (5) DVT prophylaxis Current Visit: Yes Status: Acute Assessment and plan: Heparin 5000 U SC BID - Subjective Interval history: Pt seen/eval, she endorses events prompting hospitalization. Denies etoh/tobacc use/illicits. With further inquiry, she did state that she snores sometimes, but has never been evaluated for DEDRA. 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 She denies any palpitations/pause, chest pain/pressure, dyspnea, nvd since admission. No lightheaded/dizziness. - Constitutional Vitals: Temp Pulse Resp BP Pulse Ox 97.9 F 72 16 130/75 97 10/27/16 06:54 10/27/16 06:54 10/27/16 06:54 10/27/16 06:54 10/27/16 06:54 General appearance: Present: cooperative, A&O X 3, pleasant, no acute distress, obese, answers questions appropriately - Head Head exam: Present: atraumatic, normocephalic - Eye Eye exam: Present: EOMI, sclera anicteric - ENT ENT exam: Present: mucous membranes moist Additional comments: mallampati III - Neck Neck exam general surgery: Present: supple, trachea midline - Respiratory Respiratory exam: Present: CTAB. Absent: rhonchi, wheezes - Cardiovascular Cardiovascular exam: Present: +S1, +S2. Absent: irregular rhythm, JVD - GI/Abdominal GI/Abdominal exam: Present: soft - Extremities Exam Extremities exam: Present: warm, radial pulses palpable and symetrical - Neurological Exam Neurological exam: Present: strengths equal and symetr throughout. Absent: facial droop, speech deficit Internal Medicine: Result - Labs CBC & Chem 7: 10/27/16 02:15 10/27/16 02:15 Labs: Short CBC 10/27/16 Range/Units 02:15 WBC 5.8 (4.3-11.1) K/mcL Hgb 13.6 D (11.5-15.4) g/dL Hct 40.4 (35.3-44.9) % Plt Count 245 (140-400) K/mcL Neutrophils # 3.0 (1.6-8.9) K/mcL BMP 10/27/16 02:15 Sodium 142 Potassium 3.6 Chloride 110 H Carbon Dioxide 25 BUN 12 Creatinine 0.85 Glucose 95 Calcium 9.0 Cardiac Enzymes 10/26/16 10/27/16 Range/Units 19:01 02:15 Troponin I 0.06 H* 0.04 H* (0-0.03) ng/mL Liver Function 10/27/16 Range/Units 02:15 Total Bilirubin 0.8 (0.2-1.2) mg/dL AST 15 (5-34) Units/L ALT 20 (0-55) Units/L Alkaline Phosphatase 67 (38-126) Units/L Albumin 3.3 L (3.5-5.0) g/dL - ABG Interpretation ABG results: PT/INR, D-dimer PT 11.4 Seconds (9.4-12.1) 10/26/16 15:47 D-Dimer 418 ng/mLFEU (0-500) 10/26/16 15:47 Consult Discharge Plan - Plan Referrals: Blu Musa DO [Primary Care Provider] - <Don Sultana P - Last Filed: 10/27/16 17:11> Date of Encounter: 10/27/16 - Constitutional Vitals: Temp Pulse Resp BP Pulse Ox 98.6 F 64 16 131/73 98 10/27/16 15:52 10/27/16 15:52 10/27/16 15:52 10/27/16 15:52 10/27/16 15:52 Internal Medicine: Result - Labs CBC & Chem 7: 10/27/16 02:15 10/27/16 02:15 Labs: Short CBC 10/27/16 Range/Units 02:15 WBC 5.8 (4.3-11.1) K/mcL Hgb 13.6 D (11.5-15.4) g/dL Hct 40.4 (35.3-44.9) % Plt Count 245 (140-400) K/mcL Neutrophils # 3.0 (1.6-8.9) K/mcL BMP 10/27/16 02:15 Sodium 142 Potassium 3.6 Chloride 110 H Carbon Dioxide 25 BUN 12 Creatinine 0.85 Glucose 95 Calcium 9.0 Cardiac Enzymes 10/26/16 10/27/16 Range/Units 19:01 02:15 Troponin I 0.06 H* 0.04 H* (0-0.03) ng/mL Liver Function 10/27/16 Range/Units 02:15 Total Bilirubin 0.8 (0.2-1.2) mg/dL AST 15 (5-34) Units/L ALT 20 (0-55) Units/L Alkaline Phosphatase 67 (38-126) Units/L Albumin 3.3 L (3.5-5.0) g/dL - ABG Interpretation ABG results: PT/INR, D-dimer PT 11.4 Seconds (9.4-12.1) 10/26/16 15:47 D-Dimer 418 ng/mLFEU (0-500) 10/26/16 15:47 - Attending Attestation I examined this patient and my medical decision-making was reviewed with the TECHNOLOGIES DIVISION CHAIR/PA/Advanced Practice Nurse/Resident Physician. I agree with the documented findings, disposition and treatment plan as described except to the extent set forth below. Cardiology input appreciated.
--- NOTE | 2016-10-27 12:30 | Event Note ---
Date of Encounter: 10/27/16 Time of Encounter: 12:30 - Cardiology Event Note Patient had beta lori this morning. We'll cancel stress echo for today and it will be scheduled for tomorrow. Will hold beta lori for now. Further recs after stress echo tomorrow. Patient verbalized understanding and agreed with plan.
--- NOTE | 2016-10-27 14:23 | Electrocardiograph Report ---
[place] [id number] Test Date: 2016-10-26 Pat Name: Ashley Paulino Department: 104 Room: 2N8 Gender: Skin Pass Operator: EMERSON : 1965 Requested By: Abhi Robles Order Number: [id number] Reading MD: Rodrigue Lawson MD Measurements Intervals [place] Rate: 111 P: 26 [place]: 131 QRS: 70 QRSD: 96 T: 67 QT: 341 QTc: 406 Interpretive Statements SINUS TACHYCARDIA Electronically Signed On 10-27-2016 14:22:21 EDT by Rodrigue Lawson MD
[2016-10-27] MEDS: Potassium Chloride Elixir 20 MEQ/15 ML UDC PO ONE ×2 (16:29→16:39)
[2016-10-28] MEDS: *HR* Heparin 5,000 UNIT/ML VIAL SQ SCH (06:39)
[2016-10-28 06:50] LABS: BUN/Creatinine Ratio 16 (6-26); Blood Urea Nitrogen 13 mg/dL (7-20); Carbon Dioxide 24 mEq/L (19-29); Chloride 108 mEq/L (98-109); Glucose 100 mg/dL (70-99); Osmolality,Calculated 290 (280-300); Potassium 3.8 mEq/L (3.5-4.5); Sodium 140 mEq/L (136-145); eGFR For African Americans > 60 (> 60); eGFR For Non-African Americans > 60 (> 60)
[2016-10-28 07:09] VITALS: BP 148/91
--- NOTE | 2016-10-28 08:26 | Cardiology Progress Note ---
Date of Encounter: 10/28/16 Time of Encounter: 08:20 Assessment and Plan (1) Atrial fibrillation with RVR Current Visit: Yes Status: Acute Per cardiology: New-onset A. fib with RVR. Now NSR. Add low dose bb back today. Echo showed EF 60-65%, mild diastolic dysfunction, no significant valvular dysfunction, no segmental wall motion abnormalities. Regarding long-term anticoagulation, has a [id number] = 1 (female). On asa. Further recs pending hospital course. Monitor b/p. B/p elevated on admission may be secondary to anxiety. (2) CAD (coronary artery disease) Current Visit: Yes Status: Chronic Per Cardiology: History of minimal CAD on [facility] in 2011. On asa, statin, and bb. Qualifiers: Coronary Disease-Associated Artery/Lesion type: [place] artery [place] vs. transplanted heart: [place] heart Associated angina: without angina Qualified Code(s): I25.10 - Atherosclerotic heart disease of [place] coronary artery without angina pectoris (3) Elevated troponin I measurement Current Visit: Yes Status: Acute Per Cardiology: Initial trop negative, now 0.06 and 0.04. Suspect demand ischemia in setting of HTN and afib with RVR. No CP. No cardiac rehab warranted at this time. Stress echocardiogram pending. Discussion w patient/family: The assessment and plan as outlined above was discussed with the patient and/or family members who expressed understanding and agreement. All questions were answered. Thank you for involving us in the care of your patient. Please call with any questions. Subjective Principal diagnosis: Afib RVR Interval history: Ms. Paulino denies chest pain or SOB. She c/o lower back pain. Objective Vital Signs, Last 4 Hours Temp Pulse Resp BP Pulse Ox 10/28/16 07:05 98.4 F 77 16 148/91 98 General: Conversant, No Apparent Distress HEENT: Atraumatic, Normocephaly, Mucus Membranes Moist Neck: No JVD, Normal carotid pulses Cardiac: Reg Rate and Rhythm, Normal S1 and S2, No Murmur, Other (NSR) Lungs: Normal Breath Sounds, No Wheeze, Rales, Rhonchi Neuro: Alert and responsive, No focal deficits noted Abdomen: Soft, Non-Tender Skin: No rashes noted on visualized skin Musculoskeletal: No Chest Wall Tenderness Extremities: No Clubbing, No Cyanosis, No Edema, Normal Pulses Results 10/27/16 02:15 10/28/16 05:26 Lab Results 10/28/16 05:26 Sodium 140 Potassium 3.8 Chloride 108 Carbon Dioxide 24 BUN 13 Creatinine 0.81 Glucose 100 H Calcium 9.0 - Imaging and Cardiology Stress Test: pending Echo: report reviewed - EKG Interpretation EKG results cardiology: personally reviewed (NSR with no ST changes.) Consult Discharge Plan - Plan Referrals: Blu Musa DO [Primary Care Provider] - 11/04/16 11:30 am
--- NOTE | 2016-10-28 11:02 | Exercise Stress Test ---
Stress Echo No Doppler Name: Ashley Paulino Date of Study: 10/28/2016 Date: 1965 Ht: 66.0in Medical Record#: [id number] Age: 51 Wt: 210.0lb Gender: Female BSA: 2.04 Order #: [id number] Location: [facility] Room #: [id number] Reading Physician: Mat Palmer MD, [facility] Financial Administration Officer: Thalia Botello RDCS, RVT Supervising Provider: Morgan Lopez CNP Primary Physician: Blu Musa DO Ordering Physician: Nata Arboleda DO Indications: Atrial Fibrillation Impressions: Baseline elevated blood pressure (146/98) with normal blood pressure response to exercise. The exercise capacity was average. Stress ECG is negative for ischemia. Normal LV systolic function, LVEF 60-65% Suboptimal stress echo images. No evidence of stress-induced wall motion abnormalities in visualized segments. Findings: Stress Echo * Baseline ECG demonstrated sinus rhythm, non-specific ST-T wave abnormality. * No arrhythmias noted prior to exam beginning. * Baseline elevated blood pressure (146/98) with normal blood pressure response to exercise. * The exercise capacity was average. * No arrhythmias during exercise or recovery. * Stress ECG is negative for ischemia. * Normal LV systolic function, LVEF 60-65% * Suboptimal stress echo images. No evidence of stress-induced wall motion abnormalities in visualized segments. Left Ventricular Wall Motion: Rest Echo Findings All wall segments showed normal motion. Stress Echo Findings All wall segments showed normal motion. Stress Test Summary: Treadmill Protocol: Rodrigue Baseline Information: Resting Heart Rate: 66 Predicted Max HR: 169 Resting BP: 146/98 Stress Information: Stress Time: 7:00 minutes Test Terminated Due to: Dyspnea Fatigue Maximum Blood Pressure: 168/92 Maximum Heart Rate: 161 Percent Maximum Heart Rate Achieved: 95 Double Product: [id number] METS Reached: 10.1 History: Hypercholesteremia Previous Echo10/26/16 Updated by Mat Palmer MD, [facility] on 10/28/2016 10:56:23 AM electronically signed on 10/28/2016 10:57:23 AM with status of Final Wall Motion Harper: 1=Normal, 2=Hypokinesis, 3=Akinesis, 4=Dyskinesis, 5=Aneurysmal, 6=Hyperkinetic, X=Not Visualized (Blank)=Missing Rest Stress
--- NOTE | 2016-10-28 11:23 | Discharge Summary ---
<Bruno Bhandari - Last Filed: 10/28/16 11:21> Date of Encounter: 10/28/16 Time of Encounter: 11:21 - Discharge Diagnosis (1) Atrial fibrillation with RVR Priority: Primary Status: Acute (2) CAD (coronary artery disease) Priority: Primary Status: Chronic Qualifiers: Coronary Disease-Associated Artery/Lesion type: [place] artery [place] vs. transplanted heart: [place] heart Associated angina: without angina Qualified Code(s): I25.10 - Atherosclerotic heart disease of [place] coronary artery without angina pectoris (3) DEDRA (obstructive sleep apnea) Priority: Secondary Status: Suspected (4) Obesity (BMI 30.0-34.9) Priority: Secondary Status: Chronic (5) DVT prophylaxis Priority: Secondary Status: Acute - Discharge Medications Prescriptions: Aspirin Enteric Coated [Aspirin EC] 81 mg PO DAILY #30 tablet. Atorvastatin [Lipitor] 20 mg PO HS #40 tablet Metoprolol [Lopressor] 25 mg PO BID #40 tablet Home Medications: Diphenoxylate/Atropine [Lomotil 2.5 mg/0.025 mg] 1 tab PO QID PRN 10/26/16 [ History] Medroxyprogesterone Acetate [Depo-Provera] 150 mg IM Q3M 10/26/16 [History] Omeprazole [PriLOSEC] 20 mg PO DAILY PRN 10/26/16 [History] Aspirin Enteric Coated [Aspirin EC] 81 mg PO DAILY #30 tablet. 10/28/16 [Rx] Atorvastatin [Lipitor] 20 mg PO HS #40 tablet 10/28/16 [Rx] Metoprolol [Lopressor] 25 mg PO BID #40 tablet 10/28/16 [Rx] Allergies/Adverse Reactions: Allergies No Known Allergies Allergy (Verified 10/26/16 15:41) Procedures/tests Complete & Pending: Procedures Performed prior 72 hours Category Date Time Status EV stress echo Routine Y 10/28/16 09:00 Completed Date of admission: 10/26/16 16:54 Primary care physician: Blu Musa DO Consults: Cardiology consulted for new onset Afib Discharging clinician: Dno Sultana Anticipated date of discharge: 10/28/16 - Patient Status Disposition: Home, Self-Care Condition: Fair Functional capacity at discharge: independent ambulation Overall status at discharge: patient is progressing back to baseline - Ambulatory Orders Ambulatory Orders: Nocturnal Oximetry Time Frame: 1 Week, Facility: [facility], Location: Home Health Services - Discharge Instructions Follow Up With: Blu Musa DO [Primary Care Provider] - 11/04/16 11:30 am Yeyo Handley CNP [Advanced Practice Nurse] - (2 week f/u, new onset afib, on ASA 81mg, possible DEDRA) Forms: ED Satisfaction Letter - Diet and Activity Activity: resume usual activities as tolerated Diet: low fat, low cholesterol Hospital course: Ms. Paulino is a 51 year old female Patient would present to [facility] with chief concern: palpitations, accompanied by dyspnea, with accompanying EKG disclosing Atrial Fibrillation with RVR. Comorbidities include: CAD, obesity. Prior [facility] in 2011: nonobstructive CAD Mid left main 10%, proximal LAD 20%, proximal circumflex complex 20%, and proximal RCA 20% stenosis. Hospital course: her Afib would convert spontaneously to sinus rhythm. TSH drawn, wnl, electrolytes also in normal ranges. D-dimer negative. Troponin and BNP within normal limits. Regarding long-term anticoagulation, has a [id number] = 1 (female). Recommend to start ASA 81mg QD. Had lipid panel disclosing LDL 124, appropriate for starting statin therapy. Imaging studies disclosed: Chest X-Ray 10/26/16 15:29 IMPRESSION: No acute cardiopulmonary process. 10/26/16 Echo EF 60%, no evidence PHT/VHD, mildly dilated LA Cardiology consult regarding new onset Afib. Recommendation to undergo stress echo: NO arrhythmias noted prior to exam beginning, no arrhythmias during exercise or recovery. Stress ECG negative for ischemia, normal LV systolic function, EF 60-65% Suboptimal stress echo imaging. No evidence of stress-induced wall motion abnormalities in visualized segments. Cardiology and primary team consensus to discharge home with follow-up on anticoagulation decision as outpatient. She has no documented HTN. With further inquiry, she did state that she snores sometimes, but has never been evaluated for DEDRA. Suspect underlying untreated DEDRA. Plan for home health nocturnal pulse-ox study as outpatient. At time of discharge, patient was clinically improved, hemodynamically stable, progressing to baseline, and agreeable with plan of care. Patient was advised to seek immediate medical attention for any new or worsening symptoms including but not limited to fever, chills, chest pain, chest pressure, dyspnea, palpitations, cough, abdominal pain, nausea, vomiting, diarrhea, bloody stool, urine and the patient voiced understanding. Patient will follow-up with primary care physician: Blu Musa. New medications metoprolol 25mg PO BID, ASA 81mg PO QD, Lipitor 20mg PO QHS. - Time Spent with Patient Total time spent providing and/or coordinating discharge services: Greater than 30 minutes - Constitutional Vitals: Temp Pulse Resp BP Pulse Ox 98.4 F 77 16 148/91 98 10/28/16 07:05 10/28/16 07:05 10/28/16 07:05 10/28/16 07:05 10/28/16 07:05 General appearance: Present: cooperative, A&O X 3, pleasant, no acute distress, obese, answers questions appropriately - Head Head exam: Present: atraumatic, normocephalic - Eye Eye exam: Present: EOMI, sclera anicteric - ENT ENT exam: Present: mucous membranes moist - Neck Neck exam general surgery: Present: supple, trachea midline - Respiratory Respiratory exam: Present: CTAB. Absent: rhonchi, wheezes - Cardiovascular Cardiovascular exam: Present: +S1, +S2. Absent: irregular rhythm, JVD Additional comments: radial pulses synchronous, no carotid bruits noted - GI/Abdominal GI/Abdominal exam: Present: soft. Absent: distended - Extremities Exam Extremities exam: Present: warm, radial pulses palpable and symetrical. Absent : pedal edema - Neurological Exam Neurological exam: Absent: facial droop, speech deficit <Kayy,Don P - Last Filed: 10/28/16 18:20> Date of Encounter: 10/28/16 Procedures/tests Complete & Pending: Procedures Performed prior 72 hours Category Date Time Status EV stress echo Routine Y 10/28/16 09:00 Completed Date of admission: 10/26/16 16:54 Primary care physician: Blu Musa, DO Hospital course: Ms. Paulino is a 51 year old female - Time Spent with Patient Total time spent providing and/or coordinating discharge services: - Constitutional Vitals: Temp Pulse Resp BP Pulse Ox 98.4 F 77 16 148/91 98 10/28/16 07:05 10/28/16 07:05 10/28/16 07:05 10/28/16 07:05 05/04/17 07:05 - Attending Attestation I examined this patient and my medical decision-making was reviewed with the CIO/PA/Advanced Practice Nurse/Resident Physician. I agree with the documented findings, disposition and treatment plan as described except to the extent set forth below.
== END 2016-10-28 15:25 | disposition home or self-care (01) ==
LOC: 2NENU 15:26 → EMEROO 15:26 → 2NENU 17:50
PROVIDERS: ADMIT Nurse Practitioner Family; ATTEND Internal Medicine

== ENCOUNTER 2019-01-10 09:36 | Inpatient (IN) ==
[2019-01-10] MEDS ORDERED: D5% in Water 250 ML ONE ×2 (10:51→11:07)
[2019-01-10] MEDS ORDERED: *HR* EPINEPHrine 1 MG/10 ML SYRINGE ONE (10:51)
[2019-01-10] MEDS ORDERED: *HR* Norepinephrine 4 MG/4 ML VIAL IVC ONE (10:51)
[2019-01-10 11:02] LABS: ABG Base Excess -4 mEq/L (-2 to 3); ABG HCO3 27 mEq/L (21-27); ABG Oxygen Saturation 89 % (95-98); ABG PCO2 75 mmHg (35-45); ABG PH 7.15 pH Units (7.32-7.45); ABG PO2 75 mmHg (85-104); ABG TCO2 29 mEq/L (20-26); Blood Gas Modality ASSIST CONTROL; Blood Gas VT 480 cc
[2019-01-10 11:33] LABS: Hematocrit 33.8 % (35.3-44.9); Hemoglobin 10.5 g/dL (11.5-15.4); Mean Corpuscular HGB Conc 31.1 g/dL (31.6-35.5); Mean Corpuscular Hemoglobin 31.3 pg (28.0-33.3); Mean Corpuscular Volume 100.9 fL (83.0-100.0); Mean Platelet Volume 9.1 fL (9.4-12.4); Platelet Count 232 K/mcL (140-400); Red Blood Count 3.35 M/mcL (3.82-4.97); Red Cell Distribution Width 12.2 % (11.5-14.5); White Blood Count 22.2 K/mcL (4.3-11.1)
[2019-01-10 11:48] LABS: ABG Base Excess -8 mEq/L (-2 to 3); ABG HCO3 22 mEq/L (21-27); ABG Oxygen Saturation 84 % (95-98); ABG PCO2 73 mmHg (35-45); ABG PO2 68 mmHg (85-104); ABG TCO2 25 mEq/L (20-26); Blood Gas Modality ASSIST CONTROL; Blood Gas VT 500 cc
[2019-01-10 11:49] LABS: Calcium 7.9 mg/dL (8.6-10.3); Magnesium 2.7 mg/dL (1.6-2.6); Phosphorous 6.7 mg/dL (2.7-4.5); Potassium 3.8 mEq/L (3.5-5.1)
[2019-01-10] MEDS ORDERED: Naloxone 0.4 MG/ML INJ IVP PRN (11:55)
[2019-01-10] MEDS ORDERED: Artificial Tears SOLN 15 ML BOTTLE BOTH EYES PRN (11:59)
[2019-01-10] MEDS ORDERED: Chlorhexidine Rinse 15 ML MOUTHWASH MM SCH (12:00)
[2019-01-10] MEDS ORDERED: Dexmedetomidine HCl 400 MCG/100 ML MLS IVC SCH (12:00)
[2019-01-10] MEDS ORDERED: Artificial Tears SOLN 15 ML BOTTLE BOTH EYES SCH (12:00)
[2019-01-10] MEDS ORDERED: Sodium Bicarbonate 150 MEQ in D5% in Water 1,000 ML IVC SCH (12:00)
[2019-01-10] MEDS ORDERED: Norepinephrine 4 MG in D5% in Water 250 ML IVC SCH (12:15)
[2019-01-10] MEDS ORDERED: EPINEPHrine 5 MG in D5% in Water 250 ML IVC SCH (12:15)
[2019-01-10] MEDS ORDERED: 0.9 % Sodium Chloride 1,000 ML ONE (12:44)
[2019-01-10] MEDS ORDERED: Heparin 1,000 UNITS/500 mL 500 ML ONE (12:45)
[2019-01-10] MEDS ORDERED: *HR* Heparin 10,000 UNIT/10 ML VIAL ONE (12:45)
[2019-01-10] MEDS ORDERED: ISOVUE-370 200 ML INFUS..BTL ONE (12:45)
[2019-01-10] MEDS ORDERED: Nitroglycerin 1,000 MCG/10 ML VIAL IV ONE (12:45)
[2019-01-10 16:24] VITALS: BP 36/25
[2019-01-10] MEDS ORDERED: *HR* EPINEPHrine 1 MG/10 ML SYRINGE IVP ONE ×2 (17:11)
== END 2019-01-10 17:12 | disposition expired | DRG 82 ==
LOC: ICNU 10:25
PROVIDERS: ADMIT Internal Medicine Pulmonary Disease; ATTEND Internal Medicine Pulmonary Disease